=== PATIENT | female | born 1995 ===

== ENCOUNTER 2021-11-07 13:27 | Emergency (ER) | payer SELFPAY ==
[2021-11-07 13:33] VITALS: BP 104/70; PULSE 65; RESP 20; TEMP 36.2; O2SAT 95
--- NOTE | 2021-11-07 13:35 | PC.NURSE ---
After triaging pt her family asks if she will be getting her molars pulled today. When nurse told family we do not have a dentist and do not pull teeth. the family member states they have an appt with a dentist and they were led to this address by gps. Family does not know name of dentist they are to see or the correct address. Pt left without being seen.
== END 2021-11-08 02:54 | disposition left against medical advice (07) ==
LOC: ANHED 13:44
DX: K08.89 Other specified disorders of teeth and supporting structures (principal)
CPT/HCPCS: 99199